=== PATIENT | female | born 1990 | race Caucasian/White ===

== ENCOUNTER 2024-03-15 08:42 | Emergency (ER) | payer OTHER, SELFPAY ==
--- NOTE | 2024-03-15 08:48 | ED.URI ---
HPI - URI/Sore Throat General Chief Complaint: Upper Respiratory Infection Stated Complaint: Sore Throat Time Seen by Provider: 03/15/24 08:45 Source: patient Mode of arrival: ambulatory Limitations: no limitations History of Present Illness HPI Narrative: Jing is a 33-year-old female patient presenting to the clinic today with complaints of a sore throat x2 days. She reports she has had associated fever, chills, and body aches. Has had positive exposure to to coworkers with strep. Denies any nasal congestion or cough. MD elicited complaint: sore throat Related Data Allergies Allergy/AdvReac Type Severity Reaction Status Date / Time CEFTRIAXONE SODIUM Allergy Intermediate Hives / Uncoded 03/15/24 08:54 Red Face Review of Systems Review of Systems: Pertinent positives per HPI. Patient denies any rash, headache, visual changes, dizziness, cough, shortness of breath, chest pain, palpitations, nausea, vomiting, diarrhea, constipation, abdominal pain, or any urinary issues. PMFSH Comments At the time of my signature, I reviewed and agree with the nursing past medical, surgical, social, and family history. There is no relevant family history pertinent to the patient complaint. Exam Narrative: General: Well-developed, well nourished, in no apparent distress Head: Normocephalic, atraumatic Eyes: Pupils equally round and reactive to light bilaterally, EOM intact, sclera and conjunctive clear, no discharge, lids normal Ears: TMs intact and clear, ear canals clear, no drainage, grossly hearing normal. Nose: Nares patent, no discharge, no inflammation, no sinus tenderness. Mouth: Oral pharynx red with bilateral tonsillar enlargement with white exudate bilateral, no masses, good dentition, MMM. Neck: Supple, trachea midline, enlargement of anterior cervical nodes, no thyroid masses or goiter palpable. Cardio: Regular rate and rhythm, s1 and s2 normal, no murmur appreciated. Resp: Clear to auscultation bilaterally, no rhonchi, rales, wheezing or rubs Course Course Emergency Course: Portions of this record may have been created with voice recognition software. Level of Care: Express Care Visit Vital Signs Vital signs: Vital signs reviewed MDM - URI/Sore Throat MDM Narrative Medical decision making narrative: At the time of visit patient is resting comfortably on the exam table. Patient appears to be nontoxic. Labs: Strep test was performed and was positive in the clinic today. Plan: Patient has strep pharyngitis. Centor criteria 4/4 and strep test was positive. Prescription for amoxicillin was sent to the pharmacy. Patient has had amoxicillin the past and has done fine with it. Supportive measures were discussed with the patient and they voiced understanding discharge instructions and agrees to treatment plan. Return precautions reviewed Differential Diagnosis Differential diagnosis: Likely upper respiratory infection, otitis media, sinusitis, viral infection, bronchitis, influenza, pharyngitis and other (COVID) Discharge Plan Discharge Clinical Impression: Acute streptococcal pharyngitis Patient Disposition: Home, Self-Care Condition: Stable Instructions: Antibiotic Form, Strep Throat (ED) Additional Instructions: Strep test was positive in the clinic today. Change your toothbrush in 24 hours after initiation of the antibiotic Take prescription medications only as prescribed-amoxicillin Increase fluids and stay well hydrated Tylenol/motrin for pain/fever Cepacol spray, cough drops, throat lozenges, warm tea with honey/lemon, gargle salt water to soothe throat Go to the ED if you develop a worsening in your condition- high fever not controlled by Tylenol or Motrin, dehydration, weakness, lethargy, shortness of breath, or chest pain. Follow up with your PCP in 3-5 days if symptoms persist. Prescriptions: New amoxicillin 875 mg tablet 875 mg PO Q12H 10 Days Qty: 20 0RF Follow-up/Referrals: UNKNOWN,DOCTOR [Non-Staff] - Stand Alone Forms: Work/School Release IP Time of Disposition: 09:12 Quality NIHSS Nursing Documentation ED NIHSS nursing documentation: reviewed/agree
[2024-03-15 08:54] VITALS: BP 135/78; PULSE 56; RESP 18; TEMP 36.2; O2SAT 100
[2024-03-15 09:13] LABS: EDSTREPNEGPOS1 Positive (Negative)
== END 2024-03-15 09:19 | disposition home or self-care (01) ==
PROVIDERS: Emergency Provider Nurse Practitioner Family; PCP Nurse Practitioner Family
DX: J02.0 Streptococcal pharyngitis (principal)
CPT/HCPCS: 87880; 99203; G0463

== ENCOUNTER 2025-05-03 10:54 | Emergency (ER) | payer OTHER, SELFPAY ==
[2025-05-03 11:46] VITALS: BP 118/76; PULSE 64; RESP 18; TEMP 36.4; O2SAT 100
--- NOTE | 2025-05-03 12:02 | ED_ITS ---
HPI - URI/Sore Throat General Chief Complaint: Upper Respiratory Infection Stated Complaint: Sore Throat History of Present Illness HPI Narrative: Chief Complaint: Sore throat for two days with body aches. 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 History of Present Illness: The patient reports a sore throat and body aches for the past two days. There is no fever, but the patient has been managing symptoms with ibuprofen and increased water intake. The patient experiences postnasal drip and drainage down the back of the throat primarily in the morning, which improves after clearing but does not persist throughout the day. There is no cough or congestion. The patient has a history of strep throat but currently tested negative for strep. A culture has been sent for confirmation. The patient has been advised to use Flonase, Claritin, or Shannon to help with postnasal drainage. 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 Family History: - Not discussed. Review of Systems: - Sore throat for two days. - Body aches. - Reports not having fever. - No cough or congestion. - Postnasal drip in the morning. - No other symptoms reported. Vitals and Physical Exam findings: Not available. Related Data Allergies Allergy/AdvReac Type Severity Reaction Status Date / Time ceftriaxone Allergy Intermediate Hives Verified 05/03/25 11:43 Review of Systems Review of Systems: All systems reviewed & are unremarkable except as noted in HPI and below Eyes: Eyes: Reports as per HPI ENT: Reports as per HPI Cardiovascular: Cardiovascular: Reports as per HPI Respiratory: Respiratory: Reports as per HPI Genitourinary: Genitourinary: Reports as per HPI Musculoskeletal: Musculoskeletal: Reports as per HPI Integumentary/Breasts: Skin/Breast: Reports as per HPI Neurologic: Reports as per HPI Psychiatric: Psychiatric: Reports as per HPI Endocrine: Endocrine: Reports as per HPI Hematologic/Lymphatic: Hematologic/Lymphatic: Reports as per HPI Allergic/Immunologic: Allergic/Immunologic: Reports as per HPI Exam Const: General: cooperative, healthy appearing, comfortable, no acute distress and well developed Orientation/consciousness: patient oriented x3 HENMT: Head: normal to inspection Eyes: General: appearance normal, both eyes and all related structures Resp: Effort & Inspection: normal respiratory effort and able to speak in complete sentences Auscultation: clear to auscultation bilaterally Cardio: Rate: regular rate Rhythm: regular rhythm Heart sounds: S1 normal heart sound present and S2 normal heart sound present Skin: General skin exam: normal color Neuro: General: patient oriented x3 Cognition (Neuro): normal cognition Speech: normal speech Psych: Mental Status: mental status grossly normal Course Course Level of Care: Express Care Visit Vital Signs Vital signs: Vital Signs Temperature 97.5 F L 05/03/25 11:46 Pulse Rate 64 05/03/25 11:46 Respiratory Rate 18 05/03/25 11:46 Blood Pressure 118/76 05/03/25 11:46 Pulse Oximetry 100 05/03/25 11:46 Oxygen Delivery Room Air 05/03/25 11:46 Temperature 97.5 F L 05/03/25 11:46 Pulse Rate 64 05/03/25 11:46 Respiratory Rate 18 05/03/25 11:46 Blood Pressure 118/76 05/03/25 11:46 Pulse Oximetry 100 05/03/25 11:46 Oxygen Delivery Room Air 05/03/25 11:46 MDM MDM Narrative Medical decision making narrative: Plan: - Send throat culture for strep testing. - Recommend use of Flonase, Claritin, or Shannon for postnasal drainage. - Continue ibuprofen and increased water intake. - Advise the patient to monitor for fever or worsening symptoms and to call if changes occur. - Prescription for Flonase to be sent to pharmacy. - Follow-up once culture results are available. Differential Diagnosis Differential Diagnosis: Assessment: 1. Possible strep throat 2. Viral pharyngitis 3. Allergic rhinitis contributing to postnasal drip Lab Data Labs: Lab Results 05/03/25 Range/Units 12:16 POC Influenza A Ag Negative (Negative) POC Influenza B Ag Negative (Negative) POC SARS CoV-2 Ag Negative (Negative) POC Grp A Strep Screen Negative (Negative) Discharge Plan Discharge Clinical Impression: Acute sore throat, PND (post-nasal drip) Patient Disposition: Home Condition: Stable Instructions: Antibiotic Form Additional Instructions: Your strep was negative today but was sent off for culture. If positive someone will call you and treat appropriately. Flonase for the postnasal drip. Ibuprofen and/or Tylenol as needed for pain. Try cool mist humidifier at night. May use Claritin Shannon Zyrtec also. Return with any new or worsening symptoms. Patient Language: Kazakh Prescriptions: New fluticasone propionate [Allergy Relief (fluticasone)] 50 mcg/actuation spray,suspension 2 spray intranasal DAILY Qty: 16 1RF Rx Instructions: administer into each nostril Follow-up/Referrals: Ross,Krysta Byrne APRN [Primary Care Provider, Nursing] Time of Disposition: 12:21 Quality NIHSS Nursing Documentation ED NIHSS nursing documentation: reviewed/agree
[2025-05-03 12:19] LABS: EDCOVIDSCREEN Negative (Negative); EDINFLUASCREEN Negative (Negative); EDINFLUBSCREEN Negative (Negative); EDSTREPNEGPOS1 Negative (Negative)
== END 2025-05-03 12:24 | disposition home or self-care (01) ==
PROVIDERS: Emergency Provider Nurse Practitioner Family; PCP Nurse Practitioner Family
DX: J02.9 Acute pharyngitis, unspecified (principal); R09.82 Postnasal drip; Z20.822 Contact with and (suspected) exposure to COVID-19
CPT/HCPCS: 87081; 87426; 87804; 87880; 99203; G0463